=== PATIENT | female | born 1985 | race Caucasian/White ===

== ENCOUNTER 2024-08-02 07:27 | Day surgery (SDC) | payer MEDICAID ==
[~2024-08-02 07:27] MED LIST: Midazolam 1 MG/ML 2 ML SDV ONE; Propofol 200 MG/20 ML SDV ONE; fentaNYL 100 MCG/2 ML SDV ONE
[2024-08-02] MEDS: Lactated Ringers 1,000 ML IV SCH (08:21)
[2024-08-02] MEDS: metroNIDAZOLE/Normal Saline 500 MG in Premix Bag 1 BAG IV ONE (08:45)
[2024-08-02] MEDS: ceFAZolin 2 GM in Premix Bag 1 BAG IV ONE (09:42)
[2024-08-02 11:01] VITALS: BP 126/84; PULSE 83
[2024-08-02] MEDS: Lidocaine 1% with EPINEPHrine 1:100,000 50 ML MDV ONE (12:56)
[2024-08-02] MEDS: Bupivacaine 0.5% 50 ML MDV ONE (12:56)
[2024-08-02] MEDS: Lidocaine 2% Jelly 30 ML Tube ONE (12:57)
== END 2024-08-02 11:06 | disposition home or self-care (01) ==
LOC: JP.SDS 07:27
PROVIDERS: ATTEND Surgery
DX: K64.8 Other hemorrhoids (principal); K64.4 Residual hemorrhoidal skin tags; E66.01 Morbid (severe) obesity due to excess calories
CPT/HCPCS: 00902-QZ; J0665; J0690; J1836; J2250; J2704; J3010; J7120